=== PATIENT | male | born 1935 | race Caucasian/White ===

== ENCOUNTER 2018-11-12 11:34 | Inpatient (IN) ==
[2018-11-12] MEDS ORDERED: CLINDAMYCIN INJ 900 MG in PREMIX 1 EACH IV STA (12:03)
[2018-11-12] MEDS ORDERED: LEVOFLOXACIN INJ 500 MG in PREMIX 1 EACH IV STA (12:03)
[2018-11-12 12:50] LABS: Basophils % 0.3 % (0.0-0.8); Eosinophils # 0.1 10*3/uL (0.0-0.87); Eosinophils % 0.5 % (0.00-10.9); Hematocrit 28.6 VOL% (42.0-52.0); Hemoglobin 8.9 GM/DL (14.0-18.0); Immature Granulocytes % 1.1 %; Immature Granulocytes Absolute 0.11 #; Lymphocytes # 1.3 10*3/uL (1.4-4.0); Lymphocytes % 12.8 % (21.2-54.2); Mean Corpuscular HGB Conc 31.1 GM/DL (32-36); Mean Corpuscular Volume 81.5 FL (87-102); Mean Platelet Volume 9.4 FL (9.6-12.0); Monocytes % 12.3 % (1.7-12.7); Platelet Count 485 T/CUMM (130-400); Red Blood Count 3.51 MC/CUMM (3.8-5.5); Red Cell Distribution Width 16.5 % (9.3-17.3); White Blood Count 10.4 T/CUMM (4-12)
[2018-11-12 13:06] LABS: Alanine Aminotransferase 44 U/L (16-61); Albumin 2.4 G/DL (3.4-5.0); Alkaline Phosphatase 134 U/L (45-117); Aspartate Amino Transferase 32 U/L (0-37); Blood Urea Nitrogen 15 MG/DL (7-18); Calcium 8.3 MG/DL (8.5-10.1); Glucose 280 MG/DL (74-106); Osmolality,Calculated 283.8 MOS/KG (273-304); Total Protein 6.3 G/DL (6.4-8.3)
[2018-11-12] MEDS ORDERED: ONDANSETRON 4 MG/2 ML VIAL IV PRN (15:00)
[2018-11-12] MEDS ORDERED: POTASSIUM CHLORIDE 20 MEQ TABLET PO ONE ×2 (15:06→21:00)
[2018-11-12] MEDS ORDERED: POTASSIUM CHLORIDE INJ 30 MEQ in SODIUM CHLORIDE 0.9% 1,000 ML IV SCH (15:30)
[2018-11-12 16:21] LABS: Risk Ratio 5.28; VLDL CHOLESTEROL 32.8 MG/DL
[2018-11-12] MEDS: VANCOMYCIN INJ 1,000 MG in SODIUM CHLORIDE 0.9% 250 ML IV SCH (16:56)
[2018-11-12] MEDS ORDERED: SODIUM CHLORIDE 0.9% 2,000 ML IV ONE (17:02)
[2018-11-12] MEDS: SODIUM CHLOR 0.9% KCL 20 MEQ 20 MEQ/1,000 ML BAG IV SCH (17:03)
[2018-11-12 17:40] LABS: Apearance,Urine CLEAR (Clear); Bilirubin,Urine Negative (Negative); Blood, Urine Negative (Negative); Glucose,Urine (UA) 150 mg/dL (Negative); Hyaline Casts,Urine 3 /LPF (0-3); Ketones,Urine Negative (Negative); Mucus,Urine Occasional /LPF (Occasional); Nitrite,Urine Negative (Negative); Protein,Urine Negative; RBC,Urine 2 /HPF (0-4); Squamous Epithelial Cell,Urine Occasional /HPF (0-10); Urine Color Yellow (Yellow); Urine Specific Gravity 1.012 (1.001-1.035); Urine Urobilinogen < 2.0 EU/DL (0.2-1.0); WBC,Urine 29 /HPF (0-6)
[2018-11-12] MEDS: INSULIN NPH 100 UNIT/ML SUBCUT SCH ×2 (19:07→19:12)
[2018-11-12] MEDS ORDERED: CLINDAMYCIN INJ 600 MG in PREMIX 1 EACH IV SCH (20:30)
[2018-11-12] MEDS: MAGNESIUM OXIDE 400 MG TABLET PO SCH (21:13)
[2018-11-12] MEDS: ASPIRIN CHEW 81 MG TABLET PO SCH (21:14)
[2018-11-13 04:38] LABS: Basophils % 0.4 % (0.0-0.8); Eosinophils # 0.1 10*3/uL (0.0-0.87); Eosinophils % 1.6 % (0.00-10.9); Hematocrit 29.2 VOL% (42.0-52.0); Immature Granulocytes % 0.9 %; Immature Granulocytes Absolute 0.08 #; Lymphocytes % 11.3 % (21.2-54.2); Mean Corpuscular HGB Conc 30.8 GM/DL (32-36); Mean Corpuscular Volume 81.8 FL (87-102); Mean Platelet Volume 9.5 FL (9.6-12.0); Monocytes % 10.9 % (1.7-12.7); Neutrophils % 74.9 % (38.7-73.9); Platelet Count 492 T/CUMM (130-400); Red Blood Count 3.57 MC/CUMM (3.8-5.5); Red Cell Distribution Width 16.4 % (9.3-17.3); White Blood Count 8.6 T/CUMM (4-12)
[2018-11-13 04:53] LABS: Calcium 8.5 MG/DL (8.5-10.1); Osmolality,Calculated 285.1 MOS/KG (273-304)
[2018-11-13] MEDS: SODIUM CHLOR 0.9% KCL 20 MEQ 20 MEQ/1,000 ML BAG IV SCH ×2 (06:25→20:36)
[2018-11-13] MEDS ORDERED: METOPROLOL SUCCINATE XL 25 MG TABLET PO SCH (09:00)
[2018-11-13] MEDS: INSULIN NPH 100 UNIT/ML SUBCUT SCH ×2 (09:44→18:01)
[2018-11-13] MEDS: CYANOCOBALAMIN 500 MCG TABLET PO SCH (09:44)
[2018-11-13] MEDS: MAGNESIUM OXIDE 400 MG TABLET PO SCH ×2 (09:44→10:05)
[2018-11-13] MEDS ORDERED: PROPOFOL 200 MG/20 ML VIAL IV ONE (12:52)
[2018-11-13] MEDS ORDERED: MIDAZOLAM 2 MG/2 ML VIAL ONE (12:52)
[2018-11-13] MEDS ORDERED: fentaNYL 100 MCG/2 ML VIAL ONE (12:53)
[2018-11-13] MEDS ORDERED: KETAMINE 500 MG/10 ML VIAL ONE (12:54)
[2018-11-13] MEDS: amLODIPine 5 MG TABLET PO SCH (14:10)
[2018-11-13] MEDS: ISOSORBIDE MONONITRATE 30 MG TABLET PO SCH (14:10)
[2018-11-13] MEDS: PANTOPRAZOLE 40 MG TABLET PO SCH (14:10)
[2018-11-13] MEDS: ACETAMINOPHEN 325 MG TABLET PO PRN (16:12)
[2018-11-13] MEDS: VANCOMYCIN INJ 1,000 MG in SODIUM CHLORIDE 0.9% 250 ML IV SCH (17:09)
[2018-11-13] MEDS: SIMVASTATIN 20 MG TABLET PO SCH (20:10)
[2018-11-13] MEDS: ASPIRIN CHEW 81 MG TABLET PO SCH (22:05)
[2018-11-14 05:25] LABS: Basophils % 0.3 % (0.0-0.8); Eosinophils # 0.1 10*3/uL (0.0-0.87); Eosinophils % 1.5 % (0.00-10.9); Hematocrit 29.7 VOL% (42.0-52.0); Immature Granulocytes % 1.7 %; Immature Granulocytes Absolute 0.16 #; Lymphocytes # 1.4 10*3/uL (1.4-4.0); Lymphocytes % 14.7 % (21.2-54.2); Mean Corpuscular HGB Conc 30.3 GM/DL (32-36); Mean Platelet Volume 9.7 FL (9.6-12.0); Monocytes % 7.8 % (1.7-12.7); Platelet Count 457 T/CUMM (130-400); Red Blood Count 3.58 MC/CUMM (3.8-5.5); Red Cell Distribution Width 16.8 % (9.3-17.3); White Blood Count 9.2 T/CUMM (4-12)
[2018-11-14 05:47] LABS: Calcium 8.2 MG/DL (8.5-10.1); Osmolality,Calculated 277.5 MOS/KG (273-304)
[2018-11-14] MEDS: PANTOPRAZOLE 40 MG TABLET PO SCH (08:31)
[2018-11-14] MEDS: CYANOCOBALAMIN 500 MCG TABLET PO SCH (08:31)
[2018-11-14] MEDS: amLODIPine 5 MG TABLET PO SCH (08:31)
[2018-11-14] MEDS: MAGNESIUM OXIDE 400 MG TABLET PO SCH ×2 (08:31→21:13)
[2018-11-14] MEDS: ISOSORBIDE MONONITRATE 30 MG TABLET PO SCH (08:31)
[2018-11-14] MEDS: SODIUM CHLOR 0.9% KCL 20 MEQ 20 MEQ/1,000 ML BAG IV SCH (08:33)
[2018-11-14] MEDS: ACETAMINOPHEN 325 MG TABLET PO PRN ×2 (08:38→21:13)
[2018-11-14] MEDS: INSULIN NPH 100 UNIT/ML SUBCUT SCH ×3 (08:42→18:44)
[2018-11-14] MEDS: SODIUM HYPOCHLORITE 0.25% IRRIG 473 ML BOTTLE TOP SCH (10:40)
[2018-11-14] MEDS: ENOXAPARIN 40 MG/0.4 ML SYRINGE SUBCUT SCH ×3 (12:00→17:16)
[2018-11-14] MEDS: VANCOMYCIN INJ 1,000 MG in SODIUM CHLORIDE 0.9% 250 ML IV SCH (17:18)
[2018-11-14] MEDS ORDERED: DEXTROSE 50% 25 GM/50 ML VIAL IV PRN (18:44)
[2018-11-14] MEDS ORDERED: GLUCAGON 1 MG VIAL IM PRN (18:44)
[2018-11-14] MEDS: SIMVASTATIN 20 MG TABLET PO SCH (21:13)
[2018-11-14] MEDS: ASPIRIN CHEW 81 MG TABLET PO SCH (21:13)
[2018-11-15] MEDS: SODIUM CHLOR 0.9% KCL 20 MEQ 20 MEQ/1,000 ML BAG IV SCH ×2 (00:48→16:43)
[2018-11-15 04:29] LABS: Basophils % 0.4 % (0.0-0.8); Eosinophils # 0.3 10*3/uL (0.0-0.87); Eosinophils % 4.7 % (0.00-10.9); Hematocrit 26.5 VOL% (42.0-52.0); Hemoglobin 7.9 GM/DL (14.0-18.0); Immature Granulocytes % 2.7 %; Immature Granulocytes Absolute 0.19 #; Lymphocytes # 1.4 10*3/uL (1.4-4.0); Mean Corpuscular HGB Conc 29.8 GM/DL (32-36); Mean Corpuscular Volume 83.6 FL (87-102); Mean Platelet Volume 9.4 FL (9.6-12.0); Monocytes % 10.6 % (1.7-12.7); Neutrophils % 61.6 % (38.7-73.9); Platelet Count 437 T/CUMM (130-400); Red Blood Count 3.17 MC/CUMM (3.8-5.5); Red Cell Distribution Width 16.5 % (9.3-17.3); White Blood Count 7.1 T/CUMM (4-12)
[2018-11-15 04:53] LABS: Calcium 8.4 MG/DL (8.5-10.1); Osmolality,Calculated 282.1 MOS/KG (273-304)
[2018-11-15] MEDS: SODIUM HYPOCHLORITE 0.25% IRRIG 473 ML BOTTLE TOP SCH (08:45)
[2018-11-15] MEDS: ISOSORBIDE MONONITRATE 30 MG TABLET PO SCH (08:46)
[2018-11-15] MEDS: amLODIPine 5 MG TABLET PO SCH (08:46)
[2018-11-15] MEDS: MAGNESIUM OXIDE 400 MG TABLET PO SCH ×2 (08:46→21:35)
[2018-11-15] MEDS: CYANOCOBALAMIN 500 MCG TABLET PO SCH (08:46)
[2018-11-15] MEDS: INSULIN NPH 100 UNIT/ML SUBCUT SCH ×2 (08:53→21:35)
[2018-11-15] MEDS: PANTOPRAZOLE 40 MG TABLET PO SCH (08:53)
[2018-11-15] MEDS: VANCOMYCIN INJ 1,000 MG in SODIUM CHLORIDE 0.9% 250 ML IV SCH (11:20)
[2018-11-15] MEDS: INSULIN LISPRO 100 UNIT/ML SUBCUT SCH ×2 (16:42→21:35)
[2018-11-15] MEDS: CLOPIDOGREL 75 MG TABLET PO SCH (16:42)
[2018-11-15] MEDS: SIMVASTATIN 20 MG TABLET PO SCH (21:35)
[2018-11-15] MEDS: ASPIRIN CHEW 81 MG TABLET PO SCH (21:35)
[2018-11-16] MEDS: SODIUM CHLOR 0.9% KCL 20 MEQ 20 MEQ/1,000 ML BAG IV SCH ×2 (02:33→16:38)
[2018-11-16] MEDS: VANCOMYCIN INJ 1,000 MG in SODIUM CHLORIDE 0.9% 250 ML IV SCH ×2 (04:51→23:08)
[2018-11-16 06:01] LABS: Basophils % 0.2 % (0.0-0.8); Eosinophils # 0.2 10*3/uL (0.0-0.87); Eosinophils % 2.6 % (0.00-10.9); Hematocrit 26.6 VOL% (42.0-52.0); Hemoglobin 8.2 GM/DL (14.0-18.0); Immature Granulocytes % 1.4 %; Immature Granulocytes Absolute 0.13 #; Lymphocytes # 1.7 10*3/uL (1.4-4.0); Lymphocytes % 18.7 % (21.2-54.2); Mean Corpuscular HGB Conc 30.8 GM/DL (32-36); Mean Corpuscular Volume 81.6 FL (87-102); Mean Platelet Volume 9.6 FL (9.6-12.0); Monocytes % 11.5 % (1.7-12.7); Neutrophils % 65.6 % (38.7-73.9); Platelet Count 498 T/CUMM (130-400); Red Blood Count 3.26 MC/CUMM (3.8-5.5); Red Cell Distribution Width 16.6 % (9.3-17.3); White Blood Count 9.1 T/CUMM (4-12)
[2018-11-16 06:16] LABS: Calcium 8.4 MG/DL (8.5-10.1)
[2018-11-16] MEDS: INSULIN NPH 100 UNIT/ML SUBCUT SCH ×2 (09:48→22:11)
[2018-11-16] MEDS: PANTOPRAZOLE 40 MG TABLET PO SCH (09:49)
[2018-11-16] MEDS: INSULIN LISPRO 100 UNIT/ML SUBCUT SCH ×4 (09:49→22:10)
[2018-11-16] MEDS: CYANOCOBALAMIN 500 MCG TABLET PO SCH (09:49)
[2018-11-16] MEDS: MAGNESIUM OXIDE 400 MG TABLET PO SCH ×2 (09:49→22:10)
[2018-11-16] MEDS: ISOSORBIDE MONONITRATE 30 MG TABLET PO SCH (09:49)
[2018-11-16] MEDS: amLODIPine 5 MG TABLET PO SCH (09:50)
[2018-11-16] MEDS: SODIUM HYPOCHLORITE 0.25% IRRIG 473 ML BOTTLE TOP SCH (09:50)
[2018-11-16] MEDS: CLOPIDOGREL 75 MG TABLET PO SCH (09:51)
[2018-11-16] MEDS: MEROPENEM 500 MG in SODIUM CHLORIDE 0.9% 100 ML IV SCH ×2 (12:11→22:10)
[2018-11-16] MEDS: ASPIRIN CHEW 81 MG TABLET PO SCH (22:10)
[2018-11-16] MEDS: SIMVASTATIN 20 MG TABLET PO SCH (22:10)
[2018-11-17] MEDS: MEROPENEM 500 MG in SODIUM CHLORIDE 0.9% 100 ML IV SCH (04:01)
[2018-11-17] MEDS ORDERED: LIDOCAINE 1% 20 ML VIAL ONE (06:19)
[2018-11-17] MEDS ORDERED: LACTATED RINGERS 1,000 ML IV SCH (07:30)
[2018-11-17] MEDS: INSULIN LISPRO 100 UNIT/ML SUBCUT SCH ×4 (07:38→19:30)
[2018-11-17] MEDS ORDERED: fentaNYL 100 MCG/2 ML VIAL ONE (07:54)
[2018-11-17] MEDS ORDERED: PROPOFOL 200 MG/20 ML VIAL IV ONE (07:54)
[2018-11-17] MEDS ORDERED: MIDAZOLAM 2 MG/2 ML VIAL ONE (07:54)
[2018-11-17] MEDS ORDERED: ONDANSETRON 4 MG/2 ML VIAL IV PRN (08:12)
[2018-11-17] MEDS: HYDROmorphone 2 MG/1 ML VIAL IV PRN ×2 (08:13→08:18)
[2018-11-17] MEDS: ISOSORBIDE MONONITRATE 30 MG TABLET PO SCH (08:31)
[2018-11-17] MEDS: INSULIN NPH 100 UNIT/ML SUBCUT SCH ×2 (08:31→20:33)
[2018-11-17] MEDS: PANTOPRAZOLE 40 MG TABLET PO SCH (08:31)
[2018-11-17] MEDS: MAGNESIUM OXIDE 400 MG TABLET PO SCH ×2 (08:31→20:34)
[2018-11-17] MEDS: CLOPIDOGREL 75 MG TABLET PO SCH (08:31)
[2018-11-17] MEDS: SODIUM HYPOCHLORITE 0.25% IRRIG 473 ML BOTTLE TOP SCH (08:31)
[2018-11-17] MEDS: amLODIPine 5 MG TABLET PO SCH (08:31)
[2018-11-17] MEDS: CYANOCOBALAMIN 500 MCG TABLET PO SCH (08:31)
[2018-11-17] MEDS: LEVOFLOXACIN INJ 750 MG in PREMIX 1 EACH IV SCH (12:13)
[2018-11-17] MEDS: VANCOMYCIN INJ 1,000 MG in SODIUM CHLORIDE 0.9% 250 ML IV SCH (16:10)
[2018-11-17] MEDS: ASPIRIN CHEW 81 MG TABLET PO SCH (20:33)
[2018-11-17] MEDS: SIMVASTATIN 20 MG TABLET PO SCH (20:34)
[2018-11-17] MEDS: ACETAMINOPHEN 325 MG TABLET PO PRN (20:35)
[2018-11-17] MEDS: DOCUSATE SODIUM 100 MG CAPSULE PO PRN (20:35)
[2018-11-18] MEDS: INSULIN LISPRO 100 UNIT/ML SUBCUT SCH ×4 (07:48→21:34)
[2018-11-18] MEDS: INSULIN NPH 100 UNIT/ML SUBCUT SCH ×2 (08:14→21:35)
[2018-11-18] MEDS: CYANOCOBALAMIN 500 MCG TABLET PO SCH (08:15)
[2018-11-18] MEDS: PANTOPRAZOLE 40 MG TABLET PO SCH (08:15)
[2018-11-18] MEDS: amLODIPine 5 MG TABLET PO SCH (08:15)
[2018-11-18] MEDS: MAGNESIUM OXIDE 400 MG TABLET PO SCH ×2 (08:15→21:33)
[2018-11-18] MEDS: SODIUM HYPOCHLORITE 0.25% IRRIG 473 ML BOTTLE TOP SCH (08:15)
[2018-11-18] MEDS: CLOPIDOGREL 75 MG TABLET PO SCH (08:15)
[2018-11-18] MEDS: ISOSORBIDE MONONITRATE 30 MG TABLET PO SCH (08:15)
[2018-11-18] MEDS: ENOXAPARIN 40 MG/0.4 ML SYRINGE SUBCUT SCH (10:03)
[2018-11-18] MEDS: LEVOFLOXACIN INJ 750 MG in PREMIX 1 EACH IV SCH (10:04)
[2018-11-18 11:06] LABS: Basophils % 0.4 % (0.0-0.8); Eosinophils # 0.2 10*3/uL (0.0-0.87); Eosinophils % 2.5 % (0.00-10.9); Hematocrit 28.9 VOL% (42.0-52.0); Hemoglobin 8.7 GM/DL (14.0-18.0); Immature Granulocytes % 1.5 %; Immature Granulocytes Absolute 0.14 #; Lymphocytes # 1.5 10*3/uL (1.4-4.0); Lymphocytes % 15.4 % (21.2-54.2); Mean Corpuscular HGB Conc 30.1 GM/DL (32-36); Mean Corpuscular Volume 82.3 FL (87-102); Mean Platelet Volume 9.3 FL (9.6-12.0); Monocytes % 9.7 % (1.7-12.7); Neutrophils % 70.5 % (38.7-73.9); Platelet Count 518 T/CUMM (130-400); Red Blood Count 3.51 MC/CUMM (3.8-5.5); Red Cell Distribution Width 17.1 % (9.3-17.3); White Blood Count 9.6 T/CUMM (4-12)
[2018-11-18] MEDS ORDERED: MAGNESIUM HYDROXIDE SUSP 30 ML UDCUP PO PRN (11:19)
[2018-11-18] MEDS ORDERED: MAGNESIUM HYDROXIDE SUSP 30 ML UDCUP PO ONE (11:19)
[2018-11-18 11:34] LABS: Calcium 8.4 MG/DL (8.5-10.1)
[2018-11-18] MEDS: VANCOMYCIN INJ 1,000 MG in SODIUM CHLORIDE 0.9% 250 ML IV SCH (12:32)
[2018-11-18] MEDS ORDERED: VANCOMYCIN INJ 1,000 MG in SODIUM CHLORIDE 0.9% 250 ML IV ONE (13:00)
[2018-11-18] MEDS: SIMVASTATIN 20 MG TABLET PO SCH (21:33)
[2018-11-18] MEDS: ASPIRIN CHEW 81 MG TABLET PO SCH (21:33)
[2018-11-18] MEDS: DOCUSATE SODIUM 100 MG CAPSULE PO PRN (21:33)
[2018-11-19] MEDS: INSULIN LISPRO 100 UNIT/ML SUBCUT SCH ×2 (08:38→11:59)
[2018-11-19] MEDS: SODIUM HYPOCHLORITE 0.25% IRRIG 473 ML BOTTLE TOP SCH (09:08)
[2018-11-19] MEDS: ISOSORBIDE MONONITRATE 30 MG TABLET PO SCH (09:09)
[2018-11-19] MEDS: MAGNESIUM OXIDE 400 MG TABLET PO SCH (09:09)
[2018-11-19] MEDS: PANTOPRAZOLE 40 MG TABLET PO SCH (09:09)
[2018-11-19] MEDS: CLOPIDOGREL 75 MG TABLET PO SCH (09:09)
[2018-11-19] MEDS: amLODIPine 5 MG TABLET PO SCH (09:09)
[2018-11-19] MEDS: CYANOCOBALAMIN 500 MCG TABLET PO SCH (09:09)
[2018-11-19] MEDS: ENOXAPARIN 40 MG/0.4 ML SYRINGE SUBCUT SCH (09:10)
[2018-11-19] MEDS: INSULIN NPH 100 UNIT/ML SUBCUT SCH (09:10)
[2018-11-19] MEDS ORDERED: VANCOMYCIN INJ 1,250 MG in SODIUM CHLORIDE 0.9% 250 ML IV SCH (10:00)
[2018-11-19] MEDS: LEVOFLOXACIN INJ 750 MG in PREMIX 1 EACH IV SCH (10:32)
[2018-11-19 11:47] VITALS: BP 130/61
== END 2018-11-19 14:06 | disposition home health service (06) | DRG 617 ==
LOC: N.ED 11:34 → N.EDINP 13:00 → SUATTDRO 13:00 → N.5E 14:43
PROVIDERS: ADMIT Internal Medicine; ATTEND Internal Medicine